=== PATIENT | female | born 2000 | race American Indian/Alaskan Native ===

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

== ENCOUNTER 2019-01-22 14:33 | Outpatient (CLI) | payer MEDICAID ==
[2019-01-22] MEDS ORDERED: LACTATED RINGERS 500 ML IV ONE (15:11)
[2019-01-22 15:50] LABS: Bilirubin,Urine NEG (Negative); Blood,Urine NEG (Negative); Color,Urine Yellow (Yellow); Mucus,Urine 3+ /HPF
[2019-01-22] MEDS ORDERED: ONDANSETRON 4 MG/2 ML INJ IV ONE (16:13)
[2019-01-22 17:59] VITALS: BP 128/80
== END 2019-01-22 19:10 | disposition home or self-care (01) ==
LOC: TRG 14:33
PROVIDERS: ATTEND Obstetrics & Gynecology
DX: O21.2 Late vomiting of pregnancy (principal); O26.893 Other specified pregnancy related conditions, third trimester; R10.9 Unspecified abdominal pain; O47.03 False labor before 37 completed weeks of gestation, third trimester; Z3A.36 36 weeks gestation of pregnancy
CPT/HCPCS: 59025; 81001; 87400; 96374; J2405; J7120; 96360; Q0177

== ENCOUNTER 2019-01-25 15:38 | Outpatient (CLI) | payer MEDICAID ==
[2019-01-25] MEDS ORDERED: ONDANSETRON 4 MG/2 ML INJ ONE (16:11)
[2019-01-25] MEDS ORDERED: LACTATED RINGERS 1,000 ML IV ONE (16:46)
[2019-01-25] MEDS ORDERED: ONDANSETRON 4 MG/2 ML INJ IV ONE (17:00)
[2019-01-25 18:51] LABS: Hematocrit 38.3 % (30.3-42.9); Hemoglobin 12.3 gm/dl (10.1-14.3); Mean Corpuscular HGB Conc 32 % (30-34); Mean Corpuscular Volume 86 fl (79-97); Platelet Count 318 K/mm3 (140-440); Red Blood Count 4.43 M/mm3 (3.65-5.03); Red Cell Distribution Width 15.7 % (13.2-15.2)
[2019-01-25 19:06] LABS: Alanine Aminotransferase 7 units/L (7-56); Albumin 4.1 g/dL (3.9-5); BUN/Creatinine Ratio 10; Blood Urea Nitrogen 4 mg/dL (7-17); Calcium 9.5 mg/dL (8.4-10.2); Hemolysis Index 14; Uric Acid 4.1 mg/dL (3.5-7.6)
--- NOTE | 2019-01-25 19:39 | Ultrasound Report ---
ULTRASOUND OBSTETRIC LIMITED ULTRASOUND BIOPHYSICAL PROFILE INDICATION / CLINICAL INFORMATION: gestational age, KULDEEP, placenta. Clinical Gestational Age (GA): 37.2 weeks.days COMPARISON: 12/25/18 FINDINGS: BREATHING MOVEMENT = 2 GROSS BODY MOVEMENT = 2 TONE = 2 QUALITATIVE AMNIOTIC FLUID VOLUME = 2 TOTAL BIOPHYSICAL SCORE = 8/8 HEART RATE (beats per minute): 120 AMNIOTIC FLUID INDEX (cm) = 9.0 (normal = 7-24 cm) PRESENTATION: Cephalic. ADDITIONAL FINDINGS: Placenta is posterior and free of the os. measurements yield an estimated sonographic age of 35.3 weeks.days. Estimated weight is 2 559 g with a cephalic index of 78.4. IMPRESSION: 1. Biophysical Score = 8/8 2. No acute sonographic abnormality. Signer Name: Kaleigh Silva MD Signed: 01/25/2019 7:34 PM Workstation Name: [id number]
--- NOTE | 2019-01-25 20:36 | Ultrasound Report ---
ULTRASOUND OBSTETRIC LIMITED WITH UMBILICAL CORD DOPPLER INDICATION / CLINICAL INFORMATION: small baby for dates. Clinical Gestational Age (GA): 37.2 weeks.days COMPARISON: Ultrasound dated 01/25/2019 and 12/25/2018 FINDINGS: HEART RATE (beats per minute): 139 S/D ratio: 2.06. Normal waveform. Resistive index: 0.51. Normal waveform. ADDITIONAL FINDINGS: None. Signer Name: Kaleigh Silva MD Signed: 01/25/2019 8:31 PM Workstation Name: [id number]
[2019-01-25] MEDS ORDERED: POTASSIUM CHLORIDE ER 10 MEQ TAB PO ONE (21:00)
[2019-01-25] MEDS ORDERED: PROMETHAZINE 25 MG RECT SUPP PR PRN (21:28)
--- NOTE | 2019-01-25 22:29 | History and Physical Report ---
History of Present Illness Date of examination: 01/25/19 Date of admission: 01/25/2019 Chief complaint: Nausea and vomiting. History of present illness: 18 year old at 37 weeks, 2 days gestation based on self reported EDC of 02/13/19. Patient states she has had nausea and vomiting throughout her entire and has run out of promethazine and zofran at home so has been vomiting all day. Patient states she kept foods and fluids down yesterday. States she has had HEG throughout entire and has had net weight gain of only 1 lb. (lost, then gained back plus 1 pound). States she saw [facility] during but was discharged from their care. Patient denies diarrhea; she denies eating out; she denies sick contacts; she denies recent travel. Patient denies urinary or bowel symptoms. Patient denies falls or abdominal trauma. She states fetus has been moving actively. She denies vaginal bleeding, leaking of fluid, or contractions. Patient states she receives care at [facility]. No records are available. She states current medications are vitamins, iron, zofran and promethazine. She denies drug allergies. Past History Past Medical History: other (HEG during ) Past Surgical History: other (EAB times 2 (first trimester)) [facility] History: denies: chlamydia, gonorrhea, hepatitis B, hepatitis C, herpes, HIV, syphilis, trichomonas Family/Genetic History: other (patient's mother has Graves disease) Social history: single, full code. denies: smoking, alcohol abuse, prescription drug abuse, IV drug use - Obstetrical History Expected Date of Delivery: 02/13/19 Actual Gestation: 37 Week(s) 2 Day(s) : 3 Para: 0 Hx # Term Pregnancies: 0 Number of Pregnancies: 0 Spontaneous Abortions: 0 Induced : 2 Number of Living Children: 0 Medications and Allergies Allergies Allergy/AdvReac Type Severity Reaction Status Date / Time No Known Allergies Allergy Verified 12/23/18 22:17 Home Medications Medication Instructions Recorded Confirmed Last Taken Type Ondansetron [Zofran Odt] 4 mg PO Q6HR PRN #7 tab.rapdis 02/28/17 12/24/18 Unknown Rx traMADoL [Ultram] 50 mg PO Q6HR PRN #10 tablet 02/28/17 12/24/18 Unknown Rx Ondansetron [Zofran Odt] 4 mg PO Q8HR PRN #14 tab.rapdis 04/27/17 12/24/18 Unknown Rx Sulfamethoxazole/Trimethoprim 1 each PO BID #6 tablet 04/27/17 12/24/18 Unknown Rx [Bactrim DS TAB] Famotidine [Pepcid] 20 mg PO BID #20 tablet 06/20/18 12/24/18 Unknown Rx Ondansetron [Zofran Odt] 4 mg PO Q8HR PRN #20 tab.rapdis 06/20/18 12/24/18 Unknown Rx Ondansetron [Zofran Odt] 4 mg PO Q8HR #5 tab.rapdis 07/20/18 12/24/18 Unknown Rx Ondansetron [Zofran Odt] 4 mg PO Q8HR #30 tab.rapdis 09/07/18 12/24/18 Unknown Rx Active Meds: Active Medications Potassium Chloride/Dextrose/Sod Cl (D5w/0.45% Nacl/Kcl 20 Meq) 20 meq in 1,000 mls @ 100 mls/hr IV DIRECT EMERY Promethazine HCl (Phenergan) 50 mg [place] Q6H PRN PRN Reason: Nausea And Vomiting Review of Systems All systems: negative (nausea and vomiting) - Vital Signs Vital signs: Vital Signs Temp Pulse Resp BP Pulse Ox 98.0 F 107 H 16 133/81 97 01/25/19 15:42 01/25/19 15:42 01/25/19 15:42 01/25/19 15:42 01/25/19 15:42 Temp Pulse Resp BP Pulse Ox 98.0 F 107 H 16 133/81 97 01/25/19 15:42 01/25/19 15:42 01/25/19 15:42 01/25/19 15:42 01/25/19 15:42 Enlarged thyroid, nontender, no palpable mass - Physical Exam Cardiovascular: Regular rate, Normal S1, Normal S2 Lungs: Positive: Clear to auscultation Abdomen: Positive: normal appearance, soft, normal bowel sounds. Negative: distention, tenderness, guarding, rigidity Uterus: Positive: enlarged (S<D) Extremities: Positive: normal. Negative: tenderness, edema - Obstetrical FHR: category 1 FHR comments: BPP 8/8. KULDEEP 9 cm. Normal cord doppler US. Uterine Contraction Monitor Mode: External Uterine Contraction Pattern: Absent Results Result Diagrams: 01/25/19 18:37 01/25/19 18:37 Abnormal lab results 01/25/19 01/25/19 Range/Units 18:37 18:37 WBC 11.9 H (4.5-11.0) K/mm3 RDW 15.7 H (13.2-15.2) % Potassium 3.3 L (3.6-5.0) mmol/L Carbon Dioxide 20 L (22-30) mmol/L BUN 4 L (7-17) mg/dL Creatinine 0.4 L (0.7-1.2) mg/dL Alkaline Phosphatase 177 H (35-129) units/L Lactate Dehydrogenase 242 H (91-180) units/L All other labs normal. Assessment and Plan A: at 37 weeks, 2 days gestation. Nausea and vomiting. Size less than dates; normal KULDEEP and cord doppler; BPP 8/8. Mildly decreased potassium. P: Admit for 23 hour observation. Continuous EFM. NPO. IV hydration. IV potassium. Antiemetics. Labs. US. Obtain records. Consulted with Dr. Jones re: this patient and she states to admit patient overnight for observation; Dr. Jones states she agrees with above plan.
[2019-01-25] MEDS: PROMETHAZINE 50 MG RECT SUPP PR PRN (23:23)
[2019-01-25] MEDS: D5W/0.45% NACL/KCL 20 MEQ 20 MEQ/1,000 ML BAG IV SCH (23:23)
[2019-01-26 03:18] LABS: Amorphous Crystals,Urine Few; Bacteria,Urine 1+ /HPF (Negative); Bilirubin,Urine NEG (Negative); Blood,Urine NEG (Negative); Color,Urine Yellow (Yellow); Mucus,Urine 3+ /HPF; Urobilinogen,Urine < 2.0 mg/dL (<2.0)
[2019-01-26 03:24] LABS: Amphetamine Screen,Urine PRESUMPTIVE NEGATIVE; Benzodiazepines Screen,Urine PRESUMPTIVE NEGATIVE; Cannabinoid Screen,Urine PRESUMPTIVE NEGATIVE; Cocaine Screen,Urine PRESUMPTIVE NEGATIVE; Methadone Screen,Urine PRESUMPTIVE NEGATIVE; Opiate Screen,Urine PRESUMPTIVE NEGATIVE
[2019-01-26] MEDS ORDERED: ONDANSETRON 4 MG/2 ML INJ ONE (03:36)
[2019-01-26] MEDS ORDERED: ONDANSETRON 4 MG/2 ML INJ IV ONE (03:38)
--- NOTE | 2019-01-26 05:55 | Event Note ---
Date: 01/26/19 Urinalysis shows 28 WBCs per hpf. Rocephin IV ordered. Urine C&S pending. Patient notified of plan for treatment.
[2019-01-26] MEDS: PROMETHAZINE 50 MG RECT SUPP PR PRN (06:34)
--- NOTE | 2019-01-26 06:51 | Ultrasound Report ---
See prior report. Signer Name: Darinel Reeder MD Signed: 01/26/2019 6:47 AM Workstation Name: [id number]
[2019-01-26] MEDS ORDERED: FAMOTIDINE 20 MG/2 ML INJ IV SCH (10:00)
[2019-01-26] MEDS ORDERED: cefTRIAXone/NS 1 GM/50 ML 1 GM/50 ML BAG IV SCH (10:00)
[2019-01-26] MEDS: D5W/0.45% NACL/KCL 20 MEQ 20 MEQ/1,000 ML BAG IV SCH (10:13)
[2019-01-26 16:44] VITALS: BP 113/61
== END 2019-01-26 16:45 | disposition home or self-care (01) ==
LOC: TRG 15:38 → LD 23:09 → TRG 01-26 16:45
PROVIDERS: ATTEND Obstetrics & Gynecology
DX: O21.1 Hyperemesis gravidarum with metabolic disturbance (principal); O26.843 Uterine size-date discrepancy, third trimester; O47.1 False labor at or after 37 completed weeks of gestation; Z3A.37 37 weeks gestation of pregnancy
CPT/HCPCS: 36415; 59025; 76816; 76819; 76820; 80053; 80307; 81001; 83036; 83615; 84439; 84443; 84550; 85027; 87086; 87400; 96361; 96365; 96366; 96367; 96368; J0696; J2405; J7120; 96360; 96374

== ENCOUNTER 2019-02-05 07:33 | Inpatient (IN) | payer MEDICAID ==
[2019-02-05] MEDS ORDERED: ceFAZolin/Water 2 GM/20 ML 0 GM/0 ML SYRINGE IV ONE (08:06)
[2019-02-05] MEDS ORDERED: OXYTOCIN 20 UNIT/1000ML DRIP 40,000 MILLIUNITS/2,000 ML BAG IV ONE (08:06)
[2019-02-05] MEDS ORDERED: LACTATED RINGERS 1,000 ML ONE (08:06)
[2019-02-05] MEDS ORDERED: AMPICILLIN/NS 2 GM/100 ML 2 GM/100 ML BAG IV ONE ×2 (08:10→09:00)
[2019-02-05] MEDS ORDERED: LIDOCAINE (2%) 20 MG/1 ML VIAL 20 ML MDV INFILTRATI NR (08:30)
[2019-02-05] MEDS: fentaNYL 100 MCG/2 ML INJ IV PRN ×2 (08:30→10:46)
[2019-02-05] MEDS ORDERED: ePHEDrine SULFATE 50 MG/1 ML INJ IV PRN (08:30)
[2019-02-05] MEDS ORDERED: BUTORPHANOL 2 MG/1 ML INJ IV PRN (08:30)
[2019-02-05] MEDS ORDERED: NalbUPHINE 10 MG/1 ML INJ IV PRN (08:30)
[2019-02-05] MEDS ORDERED: TERBUTALINE 1 MG/1 ML INJ SUB-Q PRN (08:30)
[2019-02-05] MEDS ORDERED: TERBUTALINE 1 MG/1 ML INJ IVP PRN (08:30)
[2019-02-05] MEDS ORDERED: MINERAL OIL 30 ML ORAL LIQD PO PRN (08:30)
[2019-02-05] MEDS ORDERED: ONDANSETRON 4 MG/2 ML INJ IV PRN ×2 (08:30→12:00)
--- NOTE | 2019-02-05 08:57 | History and Physical Report ---
History of Present Illness Date of examination: 02/05/19 Date of admission: 02/05/19 07:34 Chief complaint: Contractions History of present illness: 18yo G 3 P 0 0 2 0 @ 38 weeks 6 days here with complaints of worsening uterine contractions that started yesterday. She reports +FMs and spotting but denies LOF. She is a [employer] [facility] patient who initiated care at 5 weeks gestation. Her course was complicated by hyperemesis gravidum (resolved), teenage , vit D deficiency (was supplemented), anemia (on iron therapy), UTI (neg ELISABET) and positive trichomonas. LABS: O+, Antibody Screen neg, RI, VDRL NR, HBsAg neg, HIV neg, HSV II neg, MSAFP neg, Diabetes Screen 93, GC/CT neg, Trich (11/25 pos, 12/23 pos), GBS positive. Past History Past Medical History: no pertinent history Past Surgical History: other (Elective 2015) [employer] History: trichomonas Family/Genetic History: diabetes, hypertension Social history: single, lives with family, full code. denies: smoking, alcohol abuse, prescription drug abuse, IV drug use - Obstetrical History Expected Date of Delivery: 02/13/19 Actual Gestation: 38 Week(s) 6 Day(s) : 3 Para: 0 Hx # Term Pregnancies: 0 Number of Pregnancies: 0 Spontaneous Abortions: 0 Induced : 2 Number of Living Children: 0 Medications and Allergies Allergies Allergy/AdvReac Type Severity Reaction Status Date / Time No Known Allergies Allergy Verified 02/05/19 01:02 Home Medications Medication Instructions Recorded Confirmed Last Taken Type Promethazine [Phenergan] 25 mg PO PRN PRN 01/25/19 02/05/19 01/25/19 History Zofran TAB 1 tab PO PRN 01/25/19 02/05/19 02/05/19 01:30 History Active Meds: Active Medications Butorphanol Tartrate (Stadol) 2 mg IV Q2H PRN PRN Reason: Pain , Severe (7-10) Ephedrine Sulfate (Ephedrine Sulfate) 10 mg IV Q2M PRN PRN Reason: Hypotension Fentanyl (Sublimaze) 100 mcg IV Q2H PRN PRN Reason: Labor Pain Last Admin: 02/05/19 08:30 Dose: 100 mcg Documented by: Oxytocin/Sodium Chloride (Pitocin/Ns 20 Unit/1000ml Drip) 20 units in 1,000 mls @ 125 mls/hr IV DIRECT EMERY Lactated Ringer's (Lactated Ringers) 1,000 mls @ 125 mls/hr IV DIRECT EMERY Last Admin: 02/05/19 08:10 Dose: 999 mls/hr Documented by: Ampicillin Sodium (Ampicillin/Ns 2 Gm/100 Ml) 2 gm in 100 mls @ 100 mls/hr IV ONCE ONE; Protocol Stop: 02/05/19 09:59 Last Admin: 02/05/19 08:15 Dose: 100 mls/hr Documented by: Lidocaine (Xylocaine 2%) 20 ml INFILTRATI ONCE NR Stop: 02/06/19 08:29 Mineral Oil (Mineral Oil) 30 ml PO QHS PRN PRN Reason: Constipation Nalbuphine HCl (Nalbuphine) 10 mg IV Q2H PRN PRN Reason: Pain, Moderate (4-6) Ondansetron HCl (Zofran) 4 mg IV Q8H PRN PRN Reason: Nausea And Vomiting Terbutaline Sulfate (Brethine) 0.25 mg SUB-Q ONCE PRN PRN Reason: Hyperstimulation/Hypertonicity Terbutaline Sulfate (Brethine) 0.25 mg IVP ONCE PRN PRN Reason: Hyperstimulation/Hypertonicity Review of Systems All systems: negative - Vital Signs Vital signs: Vital Signs Temp Pulse Resp BP 98.8 F 114 H 20 121/77 02/05/19 07:44 02/05/19 07:44 02/05/19 07:44 02/05/19 07:44 Temp Pulse Resp BP Pulse Ox 98.8 F 114 H 20 121/77 02/05/19 07:44 02/05/19 07:44 02/05/19 07:44 02/05/19 07:44 - Obstetrical FHR: auscultation normal, category 1 FHR comments: baseline 120, moderate variability, 15x15 accels, no decels Uterine Contraction Monitor Mode: Palpation Cervical Dilatation: 6.5 (per RN) Cervical Effacement Percentage: 80 (per RN) station: 0 (per RN) Uterine Contraction Frequency (min): 2-3 Uterine Contraction Pattern: Regular Results Result Diagrams: 02/05/19 08:20 All other labs normal. Assessment and Plan - Patient Problems (1) 38 weeks gestation of Current Visit: Yes Status: Acute (2) Active labor at term Current Visit: Yes Status: Acute Plan to address problem: Admit to L&D with routine labor orders Anticipate vaginal delivery (3) Trichomonal vulvovaginitis Current Visit: Yes Status: Acute Plan to address problem: Flagyl 1000mg IV x1 given (4) Group B streptococcal infection during Current Visit: Yes Status: Acute Plan to address problem: Start Ampicillin for GBS prophylaxis
[2019-02-05] MEDS ORDERED: LACTATED RINGERS 1,000 ML IV SCH ×2 (09:00)
[2019-02-05] MEDS ORDERED: OXYTOCIN 20 UNIT/1000ML DRIP 20 UNITS/1,000 ML BAG IV SCH (09:00)
[2019-02-05 09:21] LABS: Hematocrit 34.1 % (30.3-42.9); Hemoglobin 10.9 gm/dl (10.1-14.3); Mean Corpuscular HGB Conc 32 % (30-34); Mean Corpuscular Volume 85 fl (79-97); Platelet Count 329 K/mm3 (140-440); Red Cell Distribution Width 15.8 % (13.2-15.2)
[2019-02-05] MEDS ORDERED: metroNIDAZOLE/NS 1000 MG-200ML 1,000 MG in EMPTY BAG 0 ML IV SCH (10:00)
--- NOTE | 2019-02-05 10:40 | Procedure Note ---
OB Delivery Note - Delivery Date of Delivery: 02/05/19 (10:11) Surgeon: TUNDE ROMERO (JORGEM) Estimated blood loss: 100cc - Vaginal Delivery presentation: vertex Delivery position: OA Intrapartum events: other(please specify) (SROM after arrival in L&D) Delivery induction: none Delivery monitor: external FHT, external uterine Route of delivery: Delivery placenta: spontaneous (10:19) Episiotomy: none Delivery laceration: none Anesthesia: intravenous Delivery comments: of a vigorous term 6 lbs 1 oz female on 02/05/19 @ 10:11. Baby bulb- suctioned, dried and placed [id number] on maternal abdomen. After 3 mins, umbilical cord double-clamped and cut by patient's mom. Cord clood collected. Spontaneous delivery of placenta, Ana-side presenting @ 10:19. Small lochia present. Fundal massage and IV Pitocin bolus initiated. Fundus F/ML/U-2. Placenta intact, was discarded. Perineum intact. No lacerations present. Mom and baby in stable condition. - A at 1 minute: 8 at 5 minutes: 9 Infant Gender: Female (6 lbs 1 oz (2742 gm); 18.5 in)
[2019-02-05 11:37] LABS: Band Neutrophils # (Manual) 0.2 K/mm3; Basophils % (Manual) 0 % (0.0-1.8); Eosinophils % (Manual) 0 % (0.0-4.3); Platelet Estimate Consistent w Auto; RBC Morphology Normal; Total Cells Counted 100
[2019-02-05] MEDS ORDERED: PROMETHAZINE 25 MG TAB PO PRN (12:00)
[2019-02-05] MEDS ORDERED: PROMETHAZINE 25 MG RECT SUPP PR PRN (12:00)
[2019-02-05] MEDS ORDERED: HYDROcodone/ACETAMINOPHEN 5-325 MG TAB PO PRN (12:00)
[2019-02-05] MEDS ORDERED: LANOLIN/ZINC/DIMETHICONE (LANSINOH) 7 GM TP PRN (12:00)
[2019-02-05] MEDS ORDERED: ACETAMINOPHEN 325 MG TAB PO PRN (12:00)
[2019-02-05] MEDS ORDERED: WITCH HAZEL/ GLYCERIN PAD TP PRN (12:00)
[2019-02-05] MEDS ORDERED: diphenhydrAMINE 25 MG CAP PO PRN (12:00)
[2019-02-05] MEDS ORDERED: PHENYLEPHRINE 10 MG/1 ML INJ SDV ONE ×2 (12:57)
[2019-02-05] MEDS ORDERED: PHENYLEPHRINE/NS 1,000 MCG/10 ML SYRINGE (OR USE) IV ONE (12:57)
[2019-02-05] MEDS ORDERED: ePHEDrine SULFATE 50 MG/1 ML INJ ONE (12:57)
[2019-02-05] MEDS ORDERED: DEXMEDETOMIDINE 200 MCG/2 ML VIAL IV ONE (12:57)
[2019-02-05] MEDS ORDERED: ONDANSETRON 4 MG/2 ML INJ ONE (12:57)
[2019-02-05] MEDS ORDERED: KETOROLAC 30 MG/1 ML INJ ONE (13:50)
[2019-02-05] MEDS: IBUPROFEN 600 MG TAB PO SCH ×2 (14:49→23:17)
[2019-02-05] MEDS ORDERED: MAGNESIUM HYDROXIDE (MOM) ORAL LIQD UDC PO PRN (22:00)
[2019-02-06] MEDS: IBUPROFEN 600 MG TAB PO SCH (05:05)
--- NOTE | 2019-02-06 09:38 | Progress Note ---
Assessment and Plan - Patient Problems (1) (normal spontaneous vaginal delivery) Current Visit: Yes Status: Acute Plan to address problem: Continue routine PP orders Anticipate d/c home tomorrow (2) Anemia Current Visit: Yes Status: Acute Qualifiers: Anemia type: iron deficiency Plan to address problem: Asymptomatic Continue daily oral iron supplementation Increase iron rich foods into diet Subjective - Subjective Date of service: 02/06/19 Principal diagnosis: S/P ; PPD#1 Interval history: See admission H & P; OB delivery summary and PP progress notes Patient reports: appetite normal, voiding normally, pain well controlled, ambulating normally 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) Objective - Vital Signs Latest vital signs: Vital Signs Temp Pulse Resp BP BP Pulse Ox 02/06/19 04:35 98.1 F 70 18 118/50 99 02/05/19 22:26 98.4 F 66 20 113/76 100 02/05/19 12:32 98.2 F 71 18 117/74 100 02/05/19 12:14 104 H 140/75 02/05/19 12:12 133/99 02/05/19 12:11 93 H 135/94 02/05/19 12:06 73 130/88 02/05/19 12:01 83 126/86 02/05/19 11:56 92 H 127/79 02/05/19 11:51 76 129/81 02/05/19 11:46 82 133/75 02/05/19 11:41 83 129/71 02/05/19 11:35 85 120/83 02/05/19 11:34 98.3 F 12 02/05/19 11:31 98 H 128/85 02/05/19 11:30 102 H 100 02/05/19 11:25 106 H 100 02/05/19 11:21 94 H 131/86 02/05/19 11:20 84 100 02/05/19 11:16 72 126/82 02/05/19 11:15 71 100 02/05/19 11:12 71 91 02/05/19 11:11 80 128/76 02/05/19 11:10 81 100 02/05/19 11:05 53 L 73 L 02/05/19 11:01 93 H 119/76 02/05/19 11:00 99 H 97 02/05/19 10:56 89 126/80 02/05/19 10:55 96 H 99 02/05/19 10:51 118 H 132/95 02/05/19 10:50 107 H 98 02/05/19 10:46 112 H 14 135/65 02/05/19 10:31 98 H 127/78 02/05/19 10:14 116 H 118/64 02/05/19 10:09 112 H 127/84 02/05/19 10:04 120 H 134/91 02/05/19 10:01 124 H 100 02/05/19 09:56 107 H 99 02/05/19 09:51 72 86 02/05/19 09:49 96 H 151/82 02/05/19 09:46 122 H 100 02/05/19 09:41 103 H 99 02/05/19 09:36 91 H 100 Intake and Output 02/05/19 02/06/19 02/06/19 23:59 07:59 15:59 Intake Total 480 120 Output Total 200 Balance 480 -80 Intake: Oral 120 Intake, Free Water 360 120 Output: Urine 200 Void 200 Other: Total, Intake Amount 120 Total, Output Amount 200 # Voids Void 1 - Exam Breasts: Present: normal Cardiovascular: Present: Regular rate Lungs: Present: Normal air movement Abdomen: Present: soft Uterus: Present: firm, fundal height below umbilicus (U-2) Extremities: Present: normal Deep Tendon Reflex Grade: Normal +2 - Labs Labs: Abnormal lab results 02/05/19 Range/Units 08:20 Seg Neuts % (Manual) 91.0 H (40.0-70.0) % Lymphocytes % (Manual) 6.0 L (13.4-35.0) % Seg Neutrophils # Man 14.2 H (1.8-7.7) K/mm3 Lymphocytes # (Manual) 0.9 L (1.2-5.4) K/mm3
--- NOTE | 2019-02-06 09:41 | Discharge Summary ---
Providers - Providers Date of Admission: 02/05/19 07:34 Date of discharge: 02/07/19 (1200) Attending physician: RASHIDA ENRIQUE Primary care physician: RASHIDA ENRIQUE Hospitalization Reason for admission: active labor, IUP at term Delivery: Episiotomy: none Laceration: none Incision: normal Other procedures: none complications: none Discharge diagnosis: other (S/P ; Anemia) Condition at discharge: Good Disposition: MD-01 TO HOME OR SELFCARE - Discharge Diagnoses (1) (normal spontaneous vaginal delivery) Status: Acute (2) Anemia Status: Acute Qualifiers: Anemia type: iron deficiency Plan - Discharge Medications Prescriptions: Ferrous Sulfate [Feosol 325 MG tab] 325 mg PO QDAY 30 Days #30 tablet - Provider Discharge Summary Activity: routine, no sex for 6 weeks, no heavy lifting 4 weeks, no strenuous exercise Diet: other (Iron rich diet) Instructions: routine Additional instructions: [] Smoking cessation referral if applicable(refer to patient education folder for contact #) [] Refer to [facility] Booklet Call your doctor immediately for: * Fever > 100.5 * Heavy vaginal bleeding ( >1 pad per hour) * Severe persistent headache * Shortness of breath * Reddened, hot, painful area to leg or breast - Follow up plan Follow up: RASHIDA ENRIQUE MD [Primary Care Provider] - 6 Weeks
[2019-02-06] MEDS: PRENATAL VIT27-FE FUMARATE-FOLIC ACID VIT TAB PO SCH (10:38)
[2019-02-06] MEDS: FERROUS SULFATE 325 MG TAB PO SCH (10:38)
[2019-02-06 10:54] LABS: Hematocrit 31.3 % (30.3-42.9); Hemoglobin 9.8 gm/dl (10.1-14.3); Mean Corpuscular HGB Conc 31 % (30-34); Mean Corpuscular Volume 85 fl (79-97); Platelet Count 290 K/mm3 (140-440); Red Blood Count 3.67 M/mm3 (3.65-5.03)
[2019-02-07] MEDS: PRENATAL VIT27-FE FUMARATE-FOLIC ACID VIT TAB PO SCH (09:54)
[2019-02-07] MEDS: FERROUS SULFATE 325 MG TAB PO SCH (09:54)
[2019-02-07] MEDS: IBUPROFEN 600 MG TAB PO SCH (09:54)
[2019-02-07 10:01] VITALS: BP 118/86
== END 2019-02-07 12:30 | disposition home or self-care (01) | DRG 774 ==
LOC: LD 07:33 → TRG 07:33 → LD 07:34 → OB 12:40
PROVIDERS: ADMIT Obstetrics & Gynecology; ATTEND Obstetrics & Gynecology
PROC: 10E0XZZ Delivery of Products of Conception, External Approach (ICD-10-PCS; principal; 2019-02-05)
DX: O98.32 Other infections with a predominantly sexual mode of transmission complicating childbirth (principal); Z37.0 Single live birth; O99.02 Anemia complicating childbirth; D50.0 Iron deficiency anemia secondary to blood loss (chronic); A59.01 Trichomonal vulvovaginitis; O98.82 Other maternal infectious and parasitic diseases complicating childbirth; B95.1 Streptococcus, group B, as the cause of diseases classified elsewhere; Z3A.38 38 weeks gestation of pregnancy; Z82.49 Family history of ischemic heart disease and other diseases of the circulatory system; Z83.3 Family history of diabetes mellitus; Z79.899 Other long term (current) drug therapy
CPT/HCPCS: 36415; 59025; 85007; 85025; 85027; 86592; 86850; 86900; 86901; G0378; J0290; J0690; J1885; J2370; J2405; J2590; J3010; J3490; J7120; Q0162

== ENCOUNTER 2019-07-29 09:38 | Emergency (ER) | payer MEDICAID ==
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
[2019-07-29 11:21] VITALS: BP 98/72
== END 2019-07-29 12:00 | disposition home or self-care (01) ==
LOC: ED 09:38
DX: L03.317 Cellulitis of buttock (principal); F12.10 Cannabis abuse, uncomplicated; Z79.899 Other long term (current) drug therapy
CPT/HCPCS: 99281

== ENCOUNTER 2019-11-22 16:09 | Emergency (ER) | payer MEDICAID ==
[2019-11-22 16:47] LABS: Hematocrit 36.1 % (30.3-42.9); Hemoglobin 11.9 gm/dl (10.1-14.3); Mean Corpuscular HGB Conc 33 % (30-34); Mean Corpuscular Volume 89 fl (79-97); Platelet Count 350 K/mm3 (140-440); Red Blood Count 4.07 M/mm3 (3.65-5.03); Red Cell Distribution Width 17.1 % (13.2-15.2)
[2019-11-22 17:00] LABS: Alanine Aminotransferase 11 units/L (7-56); Albumin 4.6 g/dL (3.9-5); Blood Urea Nitrogen 7 mg/dL (7-17); Calcium 9.7 mg/dL (8.4-10.2); Hemolysis Index 21
[2019-11-22 17:03] LABS: BUN/Creatinine Ratio 12
[2019-11-22] MEDS ORDERED: SODIUM CHLORIDE 0.9% 1000 ML 1,000 ML IV ONE ×2 (17:52→19:19)
[2019-11-22] MEDS ORDERED: ONDANSETRON 4 MG/2 ML INJ IV ONE ×2 (17:52→18:49)
[2019-11-22 17:57] LABS: Basophils % (Manual) 0 % (0.0-1.8); Eosinophils % (Manual) 0 % (0.0-4.3); Platelet Clumps Few; RBC Morphology Normal; Total Cells Counted 100
[2019-11-22] MEDS ORDERED: MORPHINE 4 MG/1 ML INJ ONE (18:40)
[2019-11-22] MEDS ORDERED: MORPHINE 4 MG/1 ML INJ IV ONE (18:49)
[2019-11-22] MEDS ORDERED: FAMOTIDINE 20 MG/2 ML INJ IV ONE (19:18)
[2019-11-22] MEDS ORDERED: POTASSIUM CHLORIDE ER 20 MEQ TAB PO ONE (19:19)
[2019-11-22] MEDS ORDERED: diphenhydrAMINE 50 MG/ML VIAL IV ONE (20:31)
[2019-11-22] MEDS ORDERED: METOCLOPRAMIDE 10 MG/2 ML INJ IV ONE (20:31)
--- NOTE | 2019-11-22 21:52 | Emergency Department Report ---
ED Abdominal Pain HPI - General Chief Complaint: Abdominal Pain Stated Complaint: ABD STOMACH PAIN Source: patient Mode of arrival: Ambulatory Limitations: No Limitations - History of Present Illness Initial Comments: Patient is a A0 19-year-old -[place] female with no past medical history presents to the ED with complaint of acute onset persistent intractable nausea and vomiting and diffuse abdominal pain for over 12 hours. Patient states that she has not been able to keep anything down since the onset of the symptoms over 12 hours ago. Patient states that she has had multiple vomiting episodes and currently she has nothing else to vomit except dry heaves. Patient states that no one else at home is had similar symptoms. Patient's LMP as stated was October 22, 2019 and unsure whether she was or not. Patient denies dysuria, urinary frequency and urgency, vaginal bleeding, vaginal discharge, dizziness, syncope, headache, chest pain, shortness of breath, sore throat, diarrhea, palpitations, fever and chills or low back pain. MD Complaint: abdominal pain, other (nausea and vomiting) -: Sudden, hour(s) (12) Location: diffuse Radiation: none Migration to: no migration Severity scale (0 -10): 10 Quality: cramping, aching, sharp Consistency: constant Worsens With: nothing Context: other ( related) Associated Symptoms: denies other symptoms, nausea, vomiting, anorexia. denies: diarrhea, fever, chills, constipation, dysuria, hematemesis, hematochezia, m jd, hematuria, syncope, other - Related Data LMP Date: 10/22/19 Home Medications Medication Instructions Recorded Confirmed Last Taken Promethazine [Phenergan] 25 mg PO PRN PRN 01/25/19 02/05/19 01/25/19 Zofran TAB 1 tab PO PRN 01/25/19 02/05/19 02/05/19 01:30 Previous Rx's Medication Instructions Recorded Last Taken Type Ferrous Sulfate [Feosol 325 MG tab] 325 mg PO QDAY 30 Days #30 tablet 02/06/19 Unknown Rx Sulfamethoxazole/Trimethoprim 1 each PO BID #14 tablet 07/29/19 Unknown Rx [Bactrim DS TAB] Acetaminophen [Tylenol] 500 mg PO Q6HR PRN #30 tablet 11/23/19 Unknown Rx Famotidine [Pepcid] 20 mg PO BID #60 tablet 11/23/19 Unknown Rx Metoclopramide [Reglan] 10 mg PO Q8H PRN #30 tab 11/23/19 Unknown Rx Potassium Chloride [Klor-Con M15] 15 meq PO Q12H #14 tab.er.prt 11/23/19 Unknown Rx Promethazine HCl [Phenergan SUPPOS] 25 mg RC Q6H PRN #20 supp.rect 11/23/19 Unknown Rx Allergies Allergy/AdvReac Type Severity Reaction Status Date / Time No Known Allergies Allergy Verified 02/05/19 01:02 ED Review of Systems ROS: Stated complaint: ABD STOMACH PAIN Other details as noted in HPI Constitutional: denies: chills, fever Eyes: denies: eye pain, eye discharge, vision change ENT: denies: ear pain, throat pain Respiratory: denies: cough, shortness of breath, wheezing Cardiovascular: denies: chest pain, palpitations Endocrine: no symptoms reported Gastrointestinal: abdominal pain, nausea, vomiting. denies: diarrhea Genitourinary: denies: urgency, dysuria, discharge Musculoskeletal: denies: back pain, joint swelling, arthralgia Skin: denies: rash, lesions Neurological: denies: headache, weakness, paresthesias Psychiatric: denies: anxiety, depression Hematological/Lymphatic: denies: easy bleeding, easy bruising ED Past Medical Hx - Past Medical History Previous Medical History?: Yes Hx Hypertension: No Hx Diabetes: No Hx Deep Vein Thrombosis: No Hx Renal Disease: No Hx Sickle Cell Disease: No Hx Seizures: No Hx Asthma: No Hx HIV: No Additional medical history: Hyperemesis gravidarum, Vaginal delivery 02-05-2019 - Surgical History Past Surgical History?: No - Social History Smoking Status: Current Every Day Smoker - Medications Home Medications: Home Medications Medication Instructions Recorded Confirmed Last Taken Type Promethazine [Phenergan] 25 mg PO PRN PRN 01/25/19 02/05/19 01/25/19 History Zofran TAB 1 tab PO PRN 01/25/19 02/05/19 02/05/19 01:30 History Ferrous Sulfate [Feosol 325 MG tab] 325 mg PO QDAY 30 Days #30 tablet 02/06/19 Unknown Rx Sulfamethoxazole/Trimethoprim 1 each PO BID #14 tablet 07/29/19 Unknown Rx [Bactrim DS TAB] Acetaminophen [Tylenol] 500 mg PO Q6HR PRN #30 tablet 11/23/19 Unknown Rx Famotidine [Pepcid] 20 mg PO BID #60 tablet 11/23/19 Unknown Rx Metoclopramide [Reglan] 10 mg PO Q8H PRN #30 tab 11/23/19 Unknown Rx Potassium Chloride [Klor-Con M15] 15 meq PO Q12H #14 tab.er.prt 11/23/19 Unknown Rx Promethazine HCl [Phenergan SUPPOS] 25 mg RC Q6H PRN #20 supp.rect 11/23/19 Unknown Rx ED Physical Exam - General Limitations: No Limitations General appearance: alert, in no apparent distress - Head Head exam: Present: atraumatic, normocephalic, normal inspection - Eye Eye exam: Present: normal appearance, PERRL, EOMI Pupils: Present: normal accommodation - ENT ENT exam: Present: normal exam, normal orophraynx, mucous membranes moist, TM's normal bilaterally, normal external ear exam - Neck Neck exam: Present: normal inspection, full ROM - Respiratory Respiratory exam: Present: normal lung sounds bilaterally. Absent: respiratory distress, wheezes, rales, rhonchi, stridor, chest wall tenderness, accessory muscle use, decreased breath sounds - Cardiovascular Cardiovascular Exam: Present: normal rhythm, tachycardia, normal heart sounds. Absent: systolic murmur, diastolic murmur, rubs, gallop - GI/Abdominal GI/Abdominal exam: Present: soft, tenderness (Palpable diffuse moderate abdominal tenderness), normal bowel sounds. Absent: guarding, rebound, hyperactive bowel sounds, organomegaly, mass - Bi-manual exam: Present: other (Pelvic exam deferred) - Extremities Exam Extremities exam: Present: normal inspection, full ROM, normal capillary refill - Back Exam Back exam: Present: normal inspection, full ROM. Absent: tenderness, CVA tenderness (R), CVA tenderness (L), muscle spasm, paraspinal tenderness, vertebral tenderness - Neurological Exam Neurological exam: Present: alert, oriented X3, CN II-XII intact, normal gait, reflexes normal - Psychiatric Psychiatric exam: Present: normal affect, normal mood, anxious - Skin Skin exam: Present: warm, dry, intact, normal color. Absent: rash ED Course Vital Signs 11/22/19 11/23/19 16:09 04:05 Temperature 99.4 F 98.2 F Pulse Rate 117 H 97 H Respiratory 24 18 Rate Blood Pressure 126/81 Blood Pressure 122/76 [Left] O2 Sat by Pulse 100 98 Oximetry ED Medical Decision Making - Lab Data Result diagrams: 11/22/19 16:27 11/22/19 16:27 - Radiology Data Radiology results: report reviewed, image reviewed Findings [facility] [address] [id number] Ultrasound Report Signed Patient: JERSON COLEMAN MR#: [id number] : 2000 Acct:[id number] Age/Sex: 19 / F ADM Date: 11/22/19 Loc: ED Attending Dr: Ordering Physician: ALEJANDRA GALVAN Date of Service: 11/22/19 Procedure(s): US OB transvaginal Accession Number(s): [id number] cc: ALEJANDRA GALVAN ULTRASOUND OBSTETRIC INDICATION / CLINICAL INFORMATION: Abdominal pain. Clinical Gestational Age (GA): 3.5 weeks.days TECHNIQUE: Transabdominal and Transvaginal. COMPARISON: None available. FINDINGS: GESTATIONAL SAC: Well-defined oval shape and intrauterine in location. Gestational sac diameter measures 1.6 cm, corresponding to a gestational age of 6 weeks, 2 days. YOLK SAC: No significant abnormality. EMBRYO/FETUS: No pole is identified. - Heart Rate, beats per minute (if present) = not visualized. ADNEXA: The right ovary measures 3.4 x 2.5 x 2.5 cm and is normal in echogenicity. There is a 1.1 cm septated, anechoic cyst within the right ovary. The left ovary measures 3.5 x 2.0 x 1.8 cm and is normal in echogenicity. There is a 1 cm anechoic cyst within the left ovary. FREE FLUID: None. ADDITIONAL FINDINGS: None. IMPRESSION: 1. Intrauterine gestational sac and yolk sac without visualized pole. Findings can be seen with normal early gestation. However, obstetric follow-up is recommended. 2. 1.1 cm septated cyst within the right ovary. Simple left ovarian cyst. Signer Name: Hannah Bentley MD Signed: 11/22/2019 10:07 PM Workstation Name: [id number] Transcribed By: SS Dictated By: HANNAH BENTLEY Electronically Authenticated By: HANNAH BENTLEY Signed Date/Time: 11/22/192206 DD/ 01 TD/TT: ------- Findings [facility] [address] [place] [address] Ultrasound Report Signed Patient: JERSON COLEMAN MR#: [id number] : 2000 Acct:[id number] Age/Sex: 19 / F ADM Date: 11/22/19 Loc: ED Attending Dr: Ordering Physician: ALEJANDRA GALVAN Date of Service: 11/22/19 Procedure(s): US OB <= 14 weeks fetus Accession Number(s): [id number] cc: ALEJANDRA GALVAN ULTRASOUND OBSTETRIC INDICATION / CLINICAL INFORMATION: Abdominal pain. Clinical Gestational Age (GA): 3.5 weeks.days TECHNIQUE: Transabdominal and Transvaginal. COMPARISON: None available. FINDINGS: GESTATIONAL SAC: Well-defined oval shape and intrauterine in location. Gestational sac diameter measures 1.6 cm, corresponding to a gestational age of 6 weeks, 2 days. YOLK SAC: No significant abnormality. EMBRYO/FETUS: No pole is identified. - Heart Rate, beats per minute (if present) = not visualized. ADNEXA: The right ovary measures 3.4 x 2.5 x 2.5 cm and is normal in echogenicity. There is a 1.1 cm septated, anechoic cyst within the right ovary. The left ovary measures 3.5 x 2.0 x 1.8 cm and is normal in echogenicity. There is a 1 cm anechoic cyst within the left ovary. FREE FLUID: None. ADDITIONAL FINDINGS: None. IMPRESSION: 1. Intrauterine gestational sac and yolk sac without visualized pole. Findings can be seen with normal early gestation. However, obstetric follow-up is recommended. 2. 1.1 cm septated cyst within the right ovary. Simple left ovarian cyst. Signer Name: Hannah Bentley MD Signed: 11/22/2019 10:07 PM Workstation Name: [id number] Transcribed By: SS Dictated By: HANNAH BENTLEY Electronically Authenticated By: HANNAH BENTLEY Signed Date/Time: 11/22/192206 DD/ 01 TD/TT: - Medical Decision Making This is a A0 19-year-old -[place] female with no past medical history presents to the ED with complaint of acute onset persistent intractable nausea and vomiting and diffuse abdominal pain for over 12 hours. Patient states that she has not been able to keep anything down since the onset of the symptoms over 12 hours ago. Patient states that she has had multiple vomiting episodes and currently she has nothing else to vomit except dry heaves. Patient states that no one else at home is had similar symptoms. Patient's LMP as stated was October 22, 2019 and unsure whether she was or not. In the ED, patient is alert and oriented x3 and is not in distress but appears to be in significant pain. Patient was treated for nausea and vomiting and also given normal saline IV bolus x1. Patient was also treated for pain in the ED and also given antacids. Lab test results were reviewed and showed an incidental finding of hCG quant of 16,452 0.0, hypokalemia of 3.0 mmol/L and hyponatremia of 136 mmol/L as well as hyperglycemia 143 mg/dL. Urinalysis is unremarkable and shows no sign of infection. Transvaginal ultrasound and pelvic ultrasound were ordered. On reevaluation, patient's nausea and vomiting rate and pain are well controlled with medications. Patient passed oral fluid challenge in the ED. The transvaginal ultrasound and pelvic ultrasound showed intrauterine gestational sac and yolk sac without visualized pole. Findings can be seen with normal early gestation. However, obstetric follow-up is recommended. It also showed a 1.1 cm septated cyst within the right ovary. Simple left ovarian cyst. Patient was discharged home on antiemetics, antacids and pain medications and was advised to return to the ED in 2 days for serial hCG quant repeat and possible ultrasound since the heart tone was not elucidated during the ultrasound. Patient was minimal advised to maintain a complete pelvic rest and to take medication as needed and follow-up with a OB/ [facility] physician in 5 to 7 days for reevaluation or return to ED immediately if her symptoms get worse. - Differential Diagnosis UTI; gastroenteritis; ovarian cyst; dehydration; ectopic Critical care attestation.: If time is entered above; I have spent that time in minutes in the direct care of this critically ill patient, excluding procedure time. ED Disposition Clinical Impression: Hyperemesis gravidarum, as incidental finding Abdominal pain Qualifiers: Abdominal location: generalized Qualified Code(s): R10.84 - Generalized abdominal pain Clinical Impression: (Ruled Out): Hematemesis with nausea Disposition: TO HOME OR SELFCARE Is pt being admited?: No Does the pt Need Aspirin: No Condition: Stable Instructions: Hyperemesis Gravidarum (ED), Gastroenteritis (ED), Acute Nausea and Vomiting (ED), Abdominal Pain (ED) Additional Instructions: Maintain a complete pelvic rest, take medication as needed for nausea and vomiting and pain, drink plenty of fluids and follow-up with your [employer] physician in 5 to 7 days for reevaluation. Return to the ED in 48 hours for repeat serial hCG quant and possible ultrasound to ascertain the heart tones. Otherwise return to the ED immediately if symptoms get worse. Prescriptions: Acetaminophen [Tylenol] 500 mg PO Q6HR PRN #30 tablet PRN Reason: Pain , Severe (7-10) Potassium Chloride [Klor-Con M15] 15 meq PO Q12H #14 tab.er.prt Famotidine [Pepcid] 20 mg PO BID #60 tablet Promethazine HCl [Phenergan SUPPOS] 25 mg RC Q6H PRN #20 supp.rect PRN Reason: Nausea Metoclopramide [Reglan] 10 mg PO Q8H PRN #30 tab PRN Reason: Nausea Referrals: TANVI BARCENAS MD [Staff Physician] - 3-5 Days Time of Disposition: 00:41 Print Language: BARBADIAN
--- NOTE | 2019-11-22 22:12 | Ultrasound Report ---
ULTRASOUND OBSTETRIC INDICATION / CLINICAL INFORMATION: Abdominal pain. Clinical Gestational Age (GA): 3.5 weeks.days TECHNIQUE: Transabdominal and Transvaginal. COMPARISON: None available. FINDINGS: GESTATIONAL SAC: Well-defined oval shape and intrauterine in location. Gestational sac diameter measu res 1.6 cm, corresponding to a gestational age of 6 weeks, 2 days. YOLK SAC: No significant abnormality. EMBRYO/FETUS: No pole is identified. - Heart Rate, beats per minute (if present) = not visualized. ADNEXA: The right ovary measures 3.4 x 2.5 x 2.5 cm and is normal in echogenicity. There is a 1.1 cm septated, anechoic cyst within the right ovary. The left ovary measures 3.5 x 2.0 x 1.8 cm and is nor mal in echogenicity. There is a 1 cm anechoic cyst within the left ovary. FREE FLUID: None. ADDITIONAL FINDINGS: None. IMPRESSION: 1. Intrauterine gestational sac and yolk sac without visualized pole. Findings can be seen with normal early gestation. However, obstetric follow-up is recommended. 2. 1.1 cm septated cyst within the right ovary. Simple left ovarian cyst. Signer Name: Chato Goel MD Signed: 11/22/2019 10:07 PM Workstation Name: [id number]
[2019-11-23] MEDS ORDERED: SODIUM CHLORIDE 0.9% 1000 ML 1,000 ML ONE (00:52)
[2019-11-23] MEDS ORDERED: METOCLOPRAMIDE 10 MG/2 ML INJ IV ONE (01:02)
[2019-11-23 04:07] LABS: Bacteria,Urine 1+ /HPF (Negative); Bilirubin,Urine NEG (Negative); Blood,Urine NEG (Negative); Color,Urine Yellow (Yellow); Mucus,Urine 3+ /HPF; Urobilinogen,Urine < 2.0 mg/dL (<2.0)
[2019-11-23 04:20] VITALS: BP 122/76
[2019-11-23 04:22] LABS: Amphetamine Screen,Urine PRESUMPTIVE NEGATIVE; Benzodiazepines Screen,Urine PRESUMPTIVE NEGATIVE; Cannabinoid Screen,Urine PRESUMPTIVE POSITIVE; Cocaine Screen,Urine PRESUMPTIVE NEGATIVE; Methadone Screen,Urine PRESUMPTIVE NEGATIVE; Opiate Screen,Urine PRESUMPTIVE NEGATIVE
== END 2019-11-23 04:05 | disposition home or self-care (01) ==
LOC: ED 16:09
DX: O21.0 Mild hyperemesis gravidarum (principal); O26.891 Other specified pregnancy related conditions, first trimester; R10.84 Generalized abdominal pain; F17.200 Nicotine dependence, unspecified, uncomplicated; Z3A.01 Less than 8 weeks gestation of pregnancy; Z79.899 Other long term (current) drug therapy
CPT/HCPCS: 36415; 76801; 76817; 80053; 80307; 81001; 83690; 84702; 85007; 85025; 96361; 96374; 96375; 96376; 99284; J1200; J2270; J2405; J2765; J7030; 80320; G0480

== ENCOUNTER 2019-11-28 10:13 | Emergency (ER) | payer MEDICAID ==
[2019-11-28] MEDS ORDERED: METOCLOPRAMIDE 10 MG/2 ML INJ IV ONE (10:49)
[2019-11-28] MEDS ORDERED: diphenhydrAMINE 50 MG/ML VIAL IV ONE (10:49)
[2019-11-28 11:21] LABS: Basophils % (Auto) 0.3 % (0.0-1.8); Eosinophils % (Auto) 0.5 % (0.0-4.3); Hemoglobin 13.1 gm/dl (10.1-14.3); Lymphocytes # (Auto) 1.4 K/mm3 (1.2-5.4); Mean Corpuscular HGB Conc 34 % (30-34); Mean Corpuscular Volume 89 fl (79-97); Monocytes % (Auto) 9.2 % (0.0-7.3); Platelet Count 355 K/mm3 (140-440); Red Blood Count 4.26 M/mm3 (3.65-5.03); Red Cell Distribution Width 16.7 % (13.2-15.2)
[2019-11-28 11:27] LABS: Alanine Aminotransferase 9 units/L (7-56); Albumin 4.5 g/dL (3.9-5); Blood Urea Nitrogen 5 mg/dL (7-17); Calcium 9.6 mg/dL (8.4-10.2); Hemolysis Index 5
[2019-11-28 11:41] LABS: BUN/Creatinine Ratio 8
[2019-11-28] MEDS ORDERED: POTASSIUM CHLORIDE ER 20 MEQ TAB PO ONE (11:58)
[2019-11-28] MEDS ORDERED: PROMETHAZINE 25 MG RECT SUPP PR ONE (12:15)
[2019-11-28] MEDS ORDERED: ALUM-MAG HYDROXIDE-SIMETHICONE 200-200-20MG/5ML ORAL LIQD 30 ML PO ONE (12:16)
[2019-11-28] MEDS ORDERED: FAMOTIDINE 20 MG/2 ML INJ IV ONE (12:16)
[2019-11-28] MEDS ORDERED: LIDOCAINE VISCOUS 2% 15 ML ORAL LIQD PO ONE (12:17)
--- NOTE | 2019-11-28 12:22 | Emergency Department Report ---
ED General Adult HPI - General Chief complaint: Nausea/Vomiting/Diarrhea Stated complaint: WEAKNESS Time Seen by Provider: 11/28/19 10:26 Source: patient Mode of arrival: Ambulatory Limitations: No Limitations - History of Present Illness Initial comments: 19-year-old -[place] female patient presents with complaints of continued nausea and vomiting during . Patient was seen here 11/23/2019 with the same complaints. She reports there is some epigastric pain, but denies any lower abdominal pain, vaginal bleeding/discharge/dyspareunia. Hematuria/urinary frequency/dysuria, fever/chills/sweats, or hematemesis/coffee- ground emesis. She is G2, . She reports prior history of hyperemesis gravidarum. She also denies any dizziness or syncopal episodes or headaches. Patient reports she is able to keep liquids down, however the nausea medicine she was sent home with is not helping. - Related Data Home Medications Medication Instructions Recorded Confirmed Last Taken Promethazine [Phenergan] 25 mg PO PRN PRN 01/25/19 02/05/19 01/25/19 Zofran TAB 1 tab PO PRN 01/25/19 02/05/19 02/05/19 01:30 Previous Rx's Medication Instructions Recorded Last Taken Type Ferrous Sulfate [Feosol 325 MG tab] 325 mg PO QDAY 30 Days #30 tablet 02/06/19 Unknown Rx Sulfamethoxazole/Trimethoprim 1 each PO BID #14 tablet 07/29/19 Unknown Rx [Bactrim DS TAB] Acetaminophen [Tylenol] 500 mg PO Q6HR PRN #30 tablet 11/23/19 Unknown Rx Famotidine [Pepcid] 20 mg PO BID #60 tablet 11/23/19 Unknown Rx Metoclopramide [Reglan] 10 mg PO Q8H PRN #30 tab 11/23/19 Unknown Rx Potassium Chloride [Klor-Con M15] 15 meq PO Q12H #14 tab.er.prt 11/23/19 Unknown Rx Promethazine HCl [Phenergan SUPPOS] 25 mg RC Q6H PRN #20 supp.rect 11/23/19 Unknown Rx Doxylamine Succinate/Vit B6 2 each PO QHS PRN #30 tablet. 11/28/19 Unknown Rx [Zachery Andersen 10-10 mg Tablet] Allergies Allergy/AdvReac Type Severity Reaction Status Date / Time No Known Allergies Allergy Verified 02/05/19 01:02 ED Review of Systems ROS: Stated complaint: WEAKNESS Other details as noted in HPI Constitutional: malaise, weakness. denies: chills, fever ENT: denies: throat pain Respiratory: denies: cough, shortness of breath Cardiovascular: denies: chest pain Gastrointestinal: abdominal pain, nausea, vomiting. denies: diarrhea, constipation, hematemesis, melena, hematochezia Genitourinary: denies: urgency, dysuria, frequency, hematuria, discharge, abnormal menses Musculoskeletal: denies: back pain Skin: denies: change in color Neurological: denies: headache Hematological/Lymphatic: denies: swollen glands ED Past Medical Hx - Past Medical History Previous Medical History?: No Hx Hypertension: No Hx Diabetes: No Hx Deep Vein Thrombosis: No Hx Renal Disease: No Hx Sickle Cell Disease: No Hx Seizures: No Hx Asthma: No Hx HIV: No Additional medical history: Hyperemesis gravidarum, Vaginal delivery 02-05-2019 - Surgical History Past Surgical History?: No - Social History Smoking Status: Current Every Day Smoker - Medications Home Medications: Home Medications Medication Instructions Recorded Confirmed Last Taken Type Promethazine [Phenergan] 25 mg PO PRN PRN 01/25/19 02/05/19 01/25/19 History Zofran TAB 1 tab PO PRN 01/25/19 02/05/19 02/05/19 01:30 History Ferrous Sulfate [Feosol 325 MG tab] 325 mg PO QDAY 30 Days #30 tablet 02/06/19 Unknown Rx Sulfamethoxazole/Trimethoprim 1 each PO BID #14 tablet 07/29/19 Unknown Rx [Bactrim DS TAB] Acetaminophen [Tylenol] 500 mg PO Q6HR PRN #30 tablet 11/23/19 Unknown Rx Famotidine [Pepcid] 20 mg PO BID #60 tablet 11/23/19 Unknown Rx Metoclopramide [Reglan] 10 mg PO Q8H PRN #30 tab 11/23/19 Unknown Rx Potassium Chloride [Klor-Con M15] 15 meq PO Q12H #14 tab.er.prt 11/23/19 Unknown Rx Promethazine HCl [Phenergan SUPPOS] 25 mg RC Q6H PRN #20 supp.rect 11/23/19 Unknown Rx Doxylamine Succinate/Vit B6 2 each PO QHS PRN #30 tablet. 11/28/19 Unknown Rx [Zachery Andersen 10-10 mg Tablet] ED Physical Exam - General Limitations: No Limitations General appearance: alert, in no apparent distress - Head Head exam: Present: atraumatic, normocephalic - Eye Eye exam: Present: normal appearance. Absent: scleral icterus - ENT ENT exam: Present: mucous membranes moist - Neck Neck exam: Present: normal inspection - Respiratory Respiratory exam: Present: normal lung sounds bilaterally. Absent: respiratory distress - Cardiovascular Cardiovascular Exam: Present: regular rate, normal rhythm. Absent: systolic murmur, diastolic murmur, rubs, gallop - GI/Abdominal GI/Abdominal exam: Present: soft, tenderness (Epigastric), normal bowel sounds. Absent: distended, guarding, rebound, rigid - Extremities Exam Extremities exam: Present: normal inspection - Back Exam Back exam: Present: normal inspection - Neurological Exam Neurological exam: Present: alert, oriented X3, normal gait - Psychiatric Psychiatric exam: Present: normal affect, normal mood - Skin Skin exam: Present: warm, dry, intact, normal color. Absent: rash, cyanosis, diaphoretic, petechiae, pallor, ecchymosis ED Course Vital Signs 11/28/19 10:19 Temperature 98.5 F Pulse Rate 82 Respiratory 20 Rate Blood Pressure 117/83 [Right] O2 Sat by Pulse 100 Oximetry ED Medical Decision Making - Lab Data Result diagrams: 11/28/19 10:52 11/28/19 10:52 Lab Results 11/28/19 11/28/19 11/28/19 Range/Units 10:52 10:52 10:52 WBC 10.5 (4.5-11.0) K/mm3 RBC 4.26 (3.65-5.03) M/mm3 Hgb 13.1 (10.1-14.3) gm/dl Hct 38.0 (30.3-42.9) % MCV 89 (79-97) fl MCH 31 (28-32) pg MCHC 34 (30-34) % RDW 16.7 H (13.2-15.2) % Plt Count 355 (140-440) K/mm3 Lymph % (Auto) 13.0 L (13.4-35.0) % [place] % (Auto) 9.2 H (0.0-7.3) % Eos % (Auto) 0.5 (0.0-4.3) % Baso % (Auto) 0.3 (0.0-1.8) % Lymph # (Auto) 1.4 (1.2-5.4) K/mm3 [place] # (Auto) 1.0 H (0.0-0.8) K/mm3 Eos # (Auto) 0.0 (0.0-0.4) K/mm3 Baso # (Auto) 0.0 (0.0-0.1) K/mm3 Seg Neutrophils % 77.0 H (40.0-70.0) % Seg Neutrophils # 8.1 H (1.8-7.7) K/mm3 Sodium 137 (137-145) mmol/L Potassium 3.3 L (3.6-5.0) mmol/L Chloride 97.1 L (98-107) mmol/L Carbon Dioxide 28 (22-30) mmol/L Anion Gap 15 mmol/L BUN 5 L (7-17) mg/dL Creatinine 0.6 (0.6-1.2) mg/dL Estimated GFR > 60 ml/min BUN/Creatinine Ratio 8 % Glucose 105 H (65-100) mg/dL Calcium 9.6 (8.4-10.2) mg/dL Total Bilirubin 0.70 (0.1-1.2) mg/dL AST 9 (5-40) units/L ALT 9 (7-56) units/L Alkaline Phosphatase 58 (35-129) units/L Total Protein 7.9 (6.3-8.2) g/dL Albumin 4.5 (3.9-5) g/dL Albumin/Globulin Ratio 1.3 % Lipase (13-60) units/L HCG, Quant 67583 H (0-4) mIU/mL // Range/Units 10:52 WBC (4.5-11.0) K/mm3 RBC (3.65-5.03) M/mm3 Hgb (10.1-14.3) gm/dl Hct (30.3-42.9) % MCV (79-97) fl MCH (28-32) pg MCHC (30-34) % RDW (13.2-15.2) % Plt Count (140-440) K/mm3 Lymph % (Auto) (13.4-35.0) % [place] % (Auto) (0.0-7.3) % Eos % (Auto) (0.0-4.3) % Baso % (Auto) (0.0-1.8) % Lymph # (Auto) (1.2-5.4) K/mm3 [place] # (Auto) (0.0-0.8) K/mm3 Eos # (Auto) (0.0-0.4) K/mm3 Baso # (Auto) (0.0-0.1) K/mm3 Seg Neutrophils % (40.0-70.0) % Seg Neutrophils # (1.8-7.7) K/mm3 Sodium (137-145) mmol/L Potassium (3.6-5.0) mmol/L Chloride (98-107) mmol/L Carbon Dioxide (22-30) mmol/L Anion Gap mmol/L BUN (7-17) mg/dL Creatinine (0.6-1.2) mg/dL Estimated GFR ml/min BUN/Creatinine Ratio % Glucose (65-100) mg/dL Calcium (8.4-10.2) mg/dL Total Bilirubin (0.1-1.2) mg/dL AST (5-40) units/L ALT (7-56) units/L Alkaline Phosphatase (35-129) units/L Total Protein (6.3-8.2) g/dL Albumin (3.9-5) g/dL Albumin/Globulin Ratio % Lipase 34 (13-60) units/L HCG, Quant (0-4) mIU/mL - Medical Decision Making 19-year-old -[place] female patient presents with complaints of continued nausea and vomiting during . Patient was seen here 11/23/2019 with the same complaints. She reports there is some epigastric pain, but denies any lower abdominal pain, vaginal bleeding/discharge/dyspareunia. Hematuria/urinary frequency/dysuria, fever/chills/sweats, or hematemesis/coffee- ground emesis. She is G2, . She reports prior history of hyperemesis gravidarum. She also denies any dizziness or syncopal episodes or headaches. Patient reports she is able to keep liquids down, however the nausea medicine she was sent home with is not helping. Mild epigastric tenderness on exam without rebound or guarding. Patient otherwise appears well on exam patient given Reglan and Benadryl along with rectal Phenergan. She is tolerating fluids and food orally at this time. Her vitals remained stable and she is well-appearing. Patient stable for discharge home. Prescription for diplegia's given. Patient instructed not to take all antibiotics at once and to try Diclegis for now. Patient to follow-up with [facility] [employer] [facility] [facility]. Strict return precautions were discussed in detail with patient who verbalizes understanding. Critical care attestation.: If time is entered above; I have spent that time in minutes in the direct care of this critically ill patient, excluding procedure time. ED Disposition Clinical Impression: Hyperemesis gravidarum Disposition: DC-01 TO HOME OR SELFCARE Is pt being admited?: No Condition: Stable Instructions: Hyperemesis Gravidarum (ED) Additional Instructions: Please follow-up with your [facility] [facility] [facility] within 3 to 5 days. Prescriptions: Doxylamine Succinate/Vit B6 [Zachery Andersen 10-10 mg Tablet] 2 each PO QHS PRN #30 tablet. PRN Reason: Nausea
[2019-11-28 16:31] VITALS: BP 132/80
== END 2019-11-28 16:37 | disposition home or self-care (01) ==
LOC: ED 10:13
DX: O21.0 Mild hyperemesis gravidarum (principal); O99.330 Smoking (tobacco) complicating pregnancy, unspecified trimester; Z3A.00 Weeks of gestation of pregnancy not specified; Z79.899 Other long term (current) drug therapy
CPT/HCPCS: 36415; 80053; 83690; 84702; 85025; 96374; 96375; 99283; J1200; J2765

== ENCOUNTER 2020-02-02 23:54 | Emergency (ER) | payer MEDICAID ==
[2020-02-03] MEDS ORDERED: AMOXICILLIN 500 MG CAP PO ONE (03:43)
[2020-02-03] MEDS ORDERED: IBUPROFEN 800 MG TAB PO ONE (03:43)
--- NOTE | 2020-02-03 03:51 | Emergency Department Report ---
ED ENT HPI - General Chief complaint: Earache Stated complaint: RT EAR PAIN Time Seen by Provider: 02/03/20 03:43 Source: patient Mode of arrival: Ambulatory Limitations: No Limitations - History of Present Illness Initial comments: Patient is a 19-year-old -[place] female who presents for right ear pain x3 days. Patient states that pain is described as 4/10 aching constant. Pain is exacerbated by activity. Pain is relieved by nothing tried. No T-max noted at home no fever noted in triage. There is no tinnitus at this time. MD complaint: ear pain - Related Data Home Medications Medication Instructions Recorded Confirmed Last Taken Promethazine [Phenergan] 25 mg PO PRN PRN 01/25/19 02/05/19 01/25/19 Zofran TAB 1 tab PO PRN 01/25/19 02/05/19 02/05/19 01:30 Previous Rx's Medication Instructions Recorded Last Taken Type Ferrous Sulfate [Feosol 325 MG tab] 325 mg PO QDAY 30 Days #30 tablet 02/06/19 Unknown Rx Sulfamethoxazole/Trimethoprim 1 each PO BID #14 tablet 07/29/19 Unknown Rx [Bactrim DS TAB] Acetaminophen [Tylenol] 500 mg PO Q6HR PRN #30 tablet 11/23/19 Unknown Rx Famotidine [Pepcid] 20 mg PO BID #60 tablet 11/23/19 Unknown Rx Metoclopramide [Reglan] 10 mg PO Q8H PRN #30 tab 11/23/19 Unknown Rx Potassium Chloride [Klor-Con M15] 15 meq PO Q12H #14 tab.er.prt 11/23/19 Unknown Rx Promethazine HCl [Phenergan SUPPOS] 25 mg RC Q6H PRN #20 supp.rect 11/23/19 Unknown Rx Doxylamine Succinate/Vit B6 2 each PO QHS PRN #30 tablet. 11/28/19 Unknown Rx [Zachery Andersen 10-10 mg Tablet] Amoxicillin [Trimox CAP] 500 mg PO Q8H 7 Days #21 capsule 02/03/20 Unknown Rx Ibuprofen [Motrin 800 MG tab] 800 mg PO Q8HR PRN #30 tablet 02/03/20 Unknown Rx Allergies Allergy/AdvReac Type Severity Reaction Status Date / Time No Known Allergies Allergy Verified 02/05/19 01:02 ED Dental HPI - General Chief complaint: Earache Stated complaint: RT EAR PAIN Time Seen by Provider: 02/03/20 03:43 Source: patient Mode of arrival: Ambulatory Limitations: No Limitations - Related Data Home Medications Medication Instructions Recorded Confirmed Last Taken Promethazine [Phenergan] 25 mg PO PRN PRN 01/25/19 02/05/19 01/25/19 Zofran TAB 1 tab PO PRN 01/25/19 02/05/19 02/05/19 01:30 Previous Rx's Medication Instructions Recorded Last Taken Type Ferrous Sulfate [Feosol 325 MG tab] 325 mg PO QDAY 30 Days #30 tablet 02/06/19 Unknown Rx Sulfamethoxazole/Trimethoprim 1 each PO BID #14 tablet 07/29/19 Unknown Rx [Bactrim DS TAB] Acetaminophen [Tylenol] 500 mg PO Q6HR PRN #30 tablet 11/23/19 Unknown Rx Famotidine [Pepcid] 20 mg PO BID #60 tablet 11/23/19 Unknown Rx Metoclopramide [Reglan] 10 mg PO Q8H PRN #30 tab 11/23/19 Unknown Rx Potassium Chloride [Klor-Con M15] 15 meq PO Q12H #14 tab.er.prt 11/23/19 Unknown Rx Promethazine HCl [Phenergan SUPPOS] 25 mg RC Q6H PRN #20 supp.rect 11/23/19 Unknown Rx Doxylamine Succinate/Vit B6 2 each PO QHS PRN #30 tablet.dr 11/28/19 Unknown Rx [Zachery Dr 10-10 mg Tablet] Amoxicillin [Trimox CAP] 500 mg PO Q8H 7 Days #21 capsule 02/03/20 Unknown Rx Ibuprofen [Motrin 800 MG tab] 800 mg PO Q8HR PRN #30 tablet 02/03/20 Unknown Rx Allergies Allergy/AdvReac Type Severity Reaction Status Date / Time No Known Allergies Allergy Verified 02/05/19 01:02 ED Review of Systems ROS: Stated complaint: RT EAR PAIN Other details as noted in HPI Constitutional: denies: chills, fever Eyes: denies: eye pain, eye discharge, vision change ENT: ear pain. denies: throat pain, congestion Respiratory: denies: cough, shortness of breath, wheezing Cardiovascular: denies: chest pain, palpitations Endocrine: no symptoms reported Gastrointestinal: denies: abdominal pain, nausea, diarrhea Genitourinary: denies: urgency, dysuria, discharge Musculoskeletal: denies: back pain, joint swelling, arthralgia Skin: denies: rash, lesions Neurological: denies: headache, weakness, paresthesias Psychiatric: denies: anxiety, depression Hematological/Lymphatic: denies: easy bleeding, easy bruising ED Past Medical Hx - Past Medical History Previous Medical History?: Yes Hx Hypertension: No Hx Diabetes: No Hx Deep Vein Thrombosis: No Hx Renal Disease: No Hx Sickle Cell Disease: No Hx Seizures: No Hx Asthma: No Hx HIV: No Additional medical history: Hyperemesis gravidarum, Vaginal delivery 02-05-2019 - Surgical History Past Surgical History?: No - Social History Smoking Status: Current Every Day Smoker Substance Use Type: None - Medications Home Medications: Home Medications Medication Instructions Recorded Confirmed Last Taken Type Promethazine [Phenergan] 25 mg PO PRN PRN 01/25/19 02/05/19 01/25/19 History Zofran TAB 1 tab PO PRN 01/25/19 02/05/19 02/05/19 01:30 History Ferrous Sulfate [Feosol 325 MG tab] 325 mg PO QDAY 30 Days #30 tablet 02/06/19 Unknown Rx Sulfamethoxazole/Trimethoprim 1 each PO BID #14 tablet 07/29/19 Unknown Rx [Bactrim DS TAB] Acetaminophen [Tylenol] 500 mg PO Q6HR PRN #30 tablet 11/23/19 Unknown Rx Famotidine [Pepcid] 20 mg PO BID #60 tablet 11/23/19 Unknown Rx Metoclopramide [Reglan] 10 mg PO Q8H PRN #30 tab 11/23/19 Unknown Rx Potassium Chloride [Klor-Con M15] 15 meq PO Q12H #14 tab.er.prt 11/23/19 Unknown Rx Promethazine HCl [Phenergan SUPPOS] 25 mg RC Q6H PRN #20 supp.rect 11/23/19 Unknown Rx Doxylamine Succinate/Vit B6 2 each PO QHS PRN #30 tablet.dr 11/28/19 Unknown Rx [Diclegis Dr 10-10 mg Tablet] Amoxicillin [Trimox CAP] 500 mg PO Q8H 7 Days #21 capsule 02/03/20 Unknown Rx Ibuprofen [Motrin 800 MG tab] 800 mg PO Q8HR PRN #30 tablet 02/03/20 Unknown Rx ED Physical Exam - General Limitations: No Limitations General appearance: alert, in no apparent distress - Head Head exam: Present: atraumatic, normocephalic - Eye Eye exam: Present: normal appearance, PERRL, EOMI. Absent: conjunctival injection, nystagmus Pupils: Present: normal accommodation - ENT ENT exam: Present: normal orophraynx, mucous membranes moist, normal external ear exam - Expanded ENT Exam Expanded Ear exam: Present: normal external inspection TM/Canal exam: Erythema: Right TM, Canal Discharge: Right TM, Canal Tenderness: Right TM Mouth exam: Present: normal external inspection Throat exam: Positive: normal inspection - Neck Neck exam: Present: normal inspection, full ROM, lymphadenopathy - Respiratory Respiratory exam: Present: normal lung sounds bilaterally. Absent: respiratory distress, wheezes, stridor, chest wall tenderness - Cardiovascular Cardiovascular Exam: Present: regular rate, normal rhythm. Absent: systolic murmur, diastolic murmur, rubs, gallop - GI/Abdominal GI/Abdominal exam: Present: soft, normal bowel sounds. Absent: bruit, hernia - Rectal Rectal exam: Present: deferred - Extremities Exam Extremities exam: Present: normal inspection, full ROM. Absent: tenderness - Back Exam Back exam: Present: normal inspection, full ROM. Absent: tenderness - Neurological Exam Neurological exam: Present: alert, oriented X3 - Psychiatric Psychiatric exam: Present: normal affect, normal mood - Skin Skin exam: Present: warm, dry, intact, normal color. Absent: rash ED Course Vital Signs 02/03/20 00:41 Temperature 98.5 F Pulse Rate 95 H Respiratory 16 Rate Blood Pressure 125/83 O2 Sat by Pulse 98 Oximetry ED Medical Decision Making - Medical Decision Making Is acute otitis media plan DC to home with prescriptions , follow-up primary care doctor in 2 to 3 days. Return to emergency should symptoms worsen. Patient verbalizes agreement and understanding of discharge plan. Patient DC'd home in stable condition at this time. Critical care attestation.: If time is entered above; I have spent that time in minutes in the direct care of this critically ill patient, excluding procedure time. ED Disposition Clinical Impression: AOM (acute otitis media) Qualifiers: Otitis media type: unspecified Qualified Code(s): H66.90 - Otitis media, unspecified, unspecified ear Disposition: DC-01 TO HOME OR SELFCARE Is pt being admited?: No Does the pt Need Aspirin: No Condition: Stable Instructions: Otitis Media, Adult Prescriptions: Ibuprofen [Motrin 800 MG tab] 800 mg PO Q8HR PRN #30 tablet PRN Reason: pain fever Amoxicillin [Trimox CAP] 500 mg PO Q8H 7 Days #21 capsule Referrals: BERKLEY FULTON MD [Staff Physician] - 3-5 Days Forms: Work/School Release Form(ED) Time of Disposition: 03:54
[2020-02-03 04:12] VITALS: BP 121/74
== END 2020-02-03 04:05 | disposition home or self-care (01) ==
LOC: ED 23:54
DX: H66.91 Otitis media, unspecified, right ear (principal); F17.200 Nicotine dependence, unspecified, uncomplicated; Z79.899 Other long term (current) drug therapy
CPT/HCPCS: 99282

== ENCOUNTER 2021-01-06 19:06 | Emergency (ER) | payer MEDICAID ==
[2021-01-06 19:30] VITALS: BP 109/66
--- NOTE | 2021-01-06 20:01 | Emergency Department Report ---
ED General Adult HPI - General Chief complaint: Urogenital-Female Stated complaint: UTI Time Seen by Provider: 01/06/21 19:42 Source: patient Mode of arrival: Ambulatory Limitations: No Limitations - History of Present Illness Initial comments: 20-year-old -[place] female patient presents with complaints of burning urination, lower abdominal pain, urinary frequency x1 week. She states her symptoms feel similar to when she has had a urinary tract infection in the past. She also admits to mild hematuria, but denies any fever/chills/sweats, stool changes, dyspareunia, vaginal discharge, or vaginal bleeding. Patient rates her current pain as 8/10 in severity. No flank pain per patient or nausea/vomiting. She denies any other past medical history - Related Data Home Medications Medication Instructions Recorded Confirmed Last Taken Promethazine [Phenergan] 25 mg PO PRN PRN 01/25/19 02/05/19 01/25/19 Zofran TAB 1 tab PO PRN 01/25/19 02/05/19 02/05/19 01:30 Previous Rx's Medication Instructions Recorded Last Taken Type Ferrous Sulfate [Feosol 325 MG tab] 325 mg PO QDAY 30 Days #30 tablet 02/06/19 Unknown Rx Sulfamethoxazole/Trimethoprim 1 each PO BID #14 tablet 07/29/19 Unknown Rx [Bactrim DS TAB] Acetaminophen [Tylenol] 500 mg PO Q6HR PRN #30 tablet 11/23/19 Unknown Rx Famotidine [Pepcid] 20 mg PO BID #60 tablet 11/23/19 Unknown Rx Metoclopramide [Reglan] 10 mg PO Q8H PRN #30 tab 11/23/19 Unknown Rx Potassium Chloride [Klor-Con M15] 15 meq PO Q12H #14 tab.er.prt 11/23/19 Unknown Rx Promethazine HCl [Phenergan SUPPOS] 25 mg RC Q6H PRN #20 supp.rect 11/23/19 Unknown Rx Doxylamine Succinate/Vit B6 2 each PO QHS PRN #30 tablet.dr 11/28/19 Unknown Rx [Zachery Andresen 10-10 mg Tablet] Amoxicillin [Trimox CAP] 500 mg PO Q8H 7 Days #21 capsule 02/03/20 Unknown Rx Ibuprofen [Motrin 800 MG tab] 800 mg PO Q8HR PRN #30 tablet 02/03/20 Unknown Rx Ibuprofen [Motrin 800 MG tab] 800 mg PO Q8HR PRN #15 tablet 01/06/21 Unknown Rx Sulfamethoxazole/Trimethoprim 1 each PO BID 7 Days #14 tablet 01/06/21 Unknown Rx [Bactrim DS TAB] Allergies Allergy/AdvReac Type Severity Reaction Status Date / Time No Known Allergies Allergy Verified 02/05/19 01:02 ED Review of Systems ROS: Stated complaint: UTI Other details as noted in HPI Constitutional: denies: chills, fever, malaise Respiratory: denies: cough Cardiovascular: denies: chest pain Gastrointestinal: abdominal pain. denies: nausea, vomiting Genitourinary: urgency, dysuria, frequency, hematuria. denies: discharge, abnormal menses, dyspareunia Skin: denies: change in color Neurological: denies: headache Hematological/Lymphatic: denies: swollen glands ED Past Medical Hx - Past Medical History Previous Medical History?: No Hx Hypertension: No Hx Diabetes: No Hx Deep Vein Thrombosis: No Hx Renal Disease: No Hx Sickle Cell Disease: No Hx Seizures: No Hx Asthma: No Hx HIV: No Additional medical history: Hyperemesis gravidarum, Vaginal delivery 02-05-2019 - Surgical History Past Surgical History?: No - Social History Smoking Status: Never Smoker Substance Use Type: Marijuana - Medications Home Medications: Home Medications Medication Instructions Recorded Confirmed Last Taken Type Promethazine [Phenergan] 25 mg PO PRN PRN 01/25/19 02/05/19 01/25/19 History Zofran TAB 1 tab PO PRN 01/25/19 02/05/19 02/05/19 01:30 History Ferrous Sulfate [Feosol 325 MG tab] 325 mg PO QDAY 30 Days #30 tablet 02/06/19 Unknown Rx Sulfamethoxazole/Trimethoprim 1 each PO BID #14 tablet 07/29/19 Unknown Rx [Bactrim DS TAB] Acetaminophen [Tylenol] 500 mg PO Q6HR PRN #30 tablet 11/23/19 Unknown Rx Famotidine [Pepcid] 20 mg PO BID #60 tablet 11/23/19 Unknown Rx Metoclopramide [Reglan] 10 mg PO Q8H PRN #30 tab 11/23/19 Unknown Rx Potassium Chloride [Klor-Con M15] 15 meq PO Q12H #14 tab.er.prt 11/23/19 Unknown Rx Promethazine HCl [Phenergan SUPPOS] 25 mg RC Q6H PRN #20 supp.rect 11/23/19 Unknown Rx Doxylamine Succinate/Vit B6 2 each PO QHS PRN #30 tablet.dr 11/28/19 Unknown Rx [Diclegis Dr 10-10 mg Tablet] Amoxicillin [Trimox CAP] 500 mg PO Q8H 7 Days #21 capsule 02/03/20 Unknown Rx Ibuprofen [Motrin 800 MG tab] 800 mg PO Q8HR PRN #30 tablet 02/03/20 Unknown Rx Ibuprofen [Motrin 800 MG tab] 800 mg PO Q8HR PRN #15 tablet 01/06/21 Unknown Rx Sulfamethoxazole/Trimethoprim 1 each PO BID 7 Days #14 tablet 01/06/21 Unknown Rx [Bactrim DS TAB] ED Physical Exam - General Limitations: No Limitations General appearance: alert, in no apparent distress - Head Head exam: Present: atraumatic, normocephalic - Eye Eye exam: Present: normal appearance. Absent: scleral icterus - Respiratory Respiratory exam: Absent: respiratory distress - Cardiovascular Cardiovascular Exam: Present: regular rate - GI/Abdominal GI/Abdominal exam: Present: soft, tenderness (Mild suprapubic), normal bowel sounds. Absent: distended, guarding, rebound, rigid - Back Exam Back exam: Absent: CVA tenderness (R), CVA tenderness (L) - Neurological Exam Neurological exam: Present: alert, oriented X3, normal gait - Psychiatric Psychiatric exam: Present: normal affect, normal mood - Skin Skin exam: Present: warm, dry, intact, normal color. Absent: rash ED Course Vital Signs 01/06/21 19:26 Temperature 98.3 F Pulse Rate 84 Respiratory 16 Rate Blood Pressure 109/66 O2 Sat by Pulse 99 Oximetry ED Medical Decision Making - Medical Decision Making 20-year-old -[place] female patient presents with complaints of burning urination, lower abdominal pain, urinary frequency x1 week. She states her symptoms feel similar to when she has had a urinary tract infection in the past. She also admits to mild hematuria, but denies any fever/chills/sweats, stool changes, dyspareunia, vaginal discharge, or vaginal bleeding. Patient rates her current pain as 8/10 in severity. No flank pain per patient or nausea/vomiting. She denies any other past medical history UA shows >182 WBCs. Will treat for UTI with Bactrim. Recommend patient follows up with PCP in 3 to 5 days. She is well-appearing, her vitals are within normal limits, she is stable for discharge home. Discussed in detail signs and symptoms that should prompt immediate return to the ED with patient who verbalizes understanding. Critical care attestation.: If time is entered above; I have spent that time in minutes in the direct care of this critically ill patient, excluding procedure time. ED Disposition Clinical Impression: UTI (urinary tract infection) Disposition: HOME / SELF CARE / HOMELESS Is pt being admited?: No Condition: Stable Instructions: Urinary Tract Infection, Adult, [id number] Prescriptions: Sulfamethoxazole/Trimethoprim [Bactrim DS TAB] 1 each PO BID 7 Days #14 tablet Ibuprofen [Motrin 800 MG tab] 800 mg PO Q8HR PRN #15 tablet PRN Reason: pain Referrals: PRIMARY CARE, [Referring] - 3-5 Days [facility] [Provider Group] - 3-5 Days Forms: Work/School Release Form(ED)
[2021-01-06 20:05] LABS: Bacteria,Urine 2+ /HPF (Negative); Bilirubin,Urine NEG (Negative); Blood,Urine LG (Negative); Color,Urine Yellow (Yellow); Mucus,Urine 2+ /HPF; Urobilinogen,Urine < 2.0 mg/dL (<2.0)
[2021-01-06 20:08] LABS: HCG Qualitative,Urine Negative (Negative); RBC,Urine > 182.0 /HPF (0.0-6.0); WBC,Urine > 182.0 /HPF (0.0-6.0)
[2021-01-06] MEDS ORDERED: IBUPROFEN 800 MG TAB PO STA (20:11)
[2021-01-06] MEDS ORDERED: HYDROcodone/ACETAMINOPHEN 5-325 MG TAB PO ONE (20:11)
== END 2021-01-06 21:01 | disposition home or self-care (01) ==
LOC: ED 19:06
DX: N39.0 Urinary tract infection, site not specified (principal)
CPT/HCPCS: 81001; 81025; 87086; 99283